=== PATIENT | male | born 1995 | race Two or more races ===

== ENCOUNTER 2023-02-06 18:43 | Outpatient (REF) | payer MEDICAID, SELFPAY | END 2023-02-06 18:44 | disposition home or self-care (01) | LOC: HO.HHCLNP 18:43 | PROVIDERS: Visit Provider Family Medicine | DX: R21 Rash and other nonspecific skin eruption (principal) | CPT/HCPCS: 36415; 87255 ==

== ENCOUNTER 2023-06-17 12:57 | Outpatient (REF) | payer MEDICAID, SELFPAY ==
[2023-06-17 18:08] LABS: CT PCR NOT DETECTED (Not Detect.); NG PCR NOT DETECTED (Not Detect.)
[2023-06-18 05:02] LABS: Syphilis Screen Nonreactive (Nonreactive)
[2023-06-18 07:51] LABS: HIV AB/AG Nonreactive (Nonreactive); HIV Num 1 0.06 S/CO (0.00-0.99); ~HepC Num1 0.14 S/CO (0.00-0.79); ~Hepatitis C Antibody Nonreactive (Nonreactive)
== END 2023-06-17 12:58 | disposition home or self-care (01) ==
LOC: HO.HHCL 12:57
PROVIDERS: Visit Provider Family Medicine
DX: Z20.2 Contact with and (suspected) exposure to infections with a predominantly sexual mode of transmission (principal); Z11.59 Encounter for screening for other viral diseases; Z11.3 Encounter for screening for infections with a predominantly sexual mode of transmission
CPT/HCPCS: 0353U; 36415; 86780; 86803; 87389